=== PATIENT | male | born 1955 | race Caucasian/White ===

== ENCOUNTER 2016-05-30 06:33 | Emergency (ER) | payer BC, OTHER ==
[2016-05-30 06:41] VITALS: BP 124/62; BMI 39.9
--- NOTE | 2016-05-30 06:47 | DR.GENAD ---
HPI - PCP Primary Care Physician: SPENCER - Complaint/Symptoms Chief Complaint:: FEVER COUGH BODYACHE Self Treatment fo Chief Complaint: TYLENOL TAKEN LAST AT 0230, ALKASELTZER COLD AND FLU - Nurses notes reviewed Nurses Notes Review: Yes - Source History Provided: Patient - Mode of Arrival Mode of Arrival: Ambulatory - Timing Onset of Chief Complaint: 05/28/16 Came on: Gradually - Duration Duration: Intermittent How lon Duration: Days - Location Location: generalized - Severity Severity: Moderate - Modifying Factors Worsens:: cough - Associated Signs and Symptoms Associated Signs and Symptoms: fever PMH - PMH Past Medical History: Yes Past Medical History: Diabetes Past Surgical History: Yes Surgical History: Abdominal Surgery, Ortho Surgery Past Surgical History Comment: HERNIA REPAIR, FISUREECTOMY, CARPALTUNNEL SURGERY , BACK SURGERY - Family History History of Family Medical Conditions: Yes Family Medical History: Cancer, Hypertension - Social History Does patient currently use any type of tobacco product: No Have you used tobacco products in the last 12 months: No Type of Tobacco Use: None Does any household member use tobacco: No Alcohol Use: None Do you use any recreational Drugs:: No Lives With: Family Lives Where: Home - infectious screening In the last 2 months have you had wt loss of >10#?: NO Have you had fever, night sweats or hemotysis?: No Have you traveled outside the country in the last 6 months?: No Isolation: Standard ROS - Review of Systems Constitutional: Fever Eyes: No Symptoms Reported ENTM: Nose Discharge, Throat Pain Respiratoy: Productive Cough Cardiovascular: No Symptoms Reported Gastrointestinal/Abdominal: No Symptoms Reported Genitourinary: No Symptoms Reported Neurological: No Symptoms Reported Musculoskeletal: No Symptoms Reported Integumentary: No Symptoms Reported Hematologic/Lymphatic: No Symptoms Reported Endocrine: No Symptoms Reported Psychiatric: No Symptoms Reported PE - Vital Signs Vitals: Temperature 100 F Pulse Rate 76 Respiratory Rate 16 Blood Pressure [Left Arm] 107/56 Blood Pressure 124/62 O2 Sat by Pulse Oximetry 98 - General Limitations: No Limitations General Appearance: Alert, In No Apparent Distress - Head Head Exam: Normal Inspection - Eyes Eye exam: Normal Appearance, EOMI. negative: Scleral Icterus, Conjunctival Injection - ENT ENT Exam: Normal Exam, Normal Oropharynx External Ear Exam: Normal External Inspection Nose Exam: Normal Nose Exam Mouth Exam: Normal Inspection Throat Exam: Tonsillar Erythema - Neck Neck Exam: Normal Inspection, Full ROM, Trachea Midline - Chest Chest Inspection: Normal Inspection - Respiratory Respiratory Exam: Normal Lung Sounds Bilat. negative: Accessory Muscle Use, Respiratory Distress Respiratory Exam: Bilateral Clear to Auscultation - Cardiovascular Cardiovascular Exam: Regular Rate, Normal Rhythm - Abdominal Exam Abdominal Exam: Normal Inspection, Normal Bowel Sounds, Soft. negative: Distention, Tenderness - Extremities Extremities Exam: Normal Inspection, Full ROM - Back Back Exam: Normal Inspection - Neurologic Neurological Exam: Alert, Oriented X3, CN II-XII Intact - Psychiatric Psychiatric Exam: Normal Mood - Skin Skin Exam: Intact, Normal Color ROR - Labs Reviewed Laboratory: Streptococcus Screen Positive (NEGATIVE) A 05/30/16 06:59 - Diagnosis Discharge Problem: Strep pharyngitis - Discharge Plan Condition: Stable Prescriptions: Azithromycin [Zithromax Z-David 5-day] 1 dose PO DAILY #6 tab Ibuprofen [Motrin Tab 800 mg] 800 mg PO Q8H PRN #30 tab PRN Reason: Pain/Inflammation Ondansetron [Zofran Odt] 4 mg PO Q8H PRN #12 tab PRN Reason: Nausea/Vomiting - Follow ups/Referrals Follow ups/Referrals: Fox Strickland [Primary Care Provider] - 3 days - Instructions
[2016-05-30] MEDS ORDERED: ROCEPHIN VIAL 1 GM IM ONE (07:34)
[2016-05-30] MEDS ORDERED: ROCEPHIN VIAL 1 GM ONE (07:42)
== END 2016-05-30 07:58 | disposition home or self-care (01) ==
LOC: ER 06:37
DX: J02.0 Streptococcal pharyngitis (principal)
CPT/HCPCS: 87502; 87503; 87880; 90471; 96372; 99282; J0696

== ENCOUNTER → 2016-08-27 | Outpatient (CLI) | payer BC ==
[2016-08-27 07:26] LABS: HEMOGLOBIN A1C 8.5 % (4.5-6.2)
[2016-08-27 07:32] LABS: BASOPHILS # (AUTO) 0.1 X10^3/uL (0.0-0.1); BASOPHILS % (AUTO) 0.7 % (0.2-1.0); EOSINOPHILS # (AUTO) 0.3 x10^3/uL (0.0-0.2); EOSINOPHILS % (AUTO) 3.7 % (0.9-2.9); HEMATOCRIT 39.5 % (42.0-54.0); HEMOGLOBIN 13.8 g/dL (13.5-18.0); LYMPHOCYTES % (AUTO) 28.5 % (21.0-51.0); MEAN CORPUSCULAR HEMOGLOBIN 32.5 pg (27.0-34.0); MEAN CORPUSCULAR VOLUME 92.8 fL (80.0-100.0); MEAN PLATELET VOLUME 9.9 fL (7.4-11.0); MONOCYTES # (AUTO) 0.6 x10^3/uL (0.3-0.8); MONOCYTES % (AUTO) 8.5 % (0.0-13.0); NEUTROPHILS % (AUTO) 58.6 % (42.0-75.0); PLATELET COUNT 172 X10^3/uL (150.0-450.0); RED BLOOD COUNT 4.26 X10^6/uL (4.7-6.0); RED CELL DISTRIBUTION WIDTH 13.3 % (11.6-16.5); WHITE BLOOD COUNT 6.9 X10^3/uL (3.6-10.0)
[2016-08-27 07:49] LABS: ALANINE AMINOTRANSFERASE 63 Units/L (12-78); ALBUMIN 4.1 g/dL (3.4-5.0); ALKALINE PHOSPHATASE 41 Units/L (46-116); ASPARTATE AMINO TRANSFERASE 27 Units/L (15-37); BLOOD UREA NITROGEN 18 mg/dL (7-18); CALCIUM 8.6 mg/dL (8.5-10.1); CHLORIDE 103 mmol/L (98-107); CHOL/HDL RATIO 4.7 (0.0-5.0); CHOLESTEROL 166 mg/dL (0-200); COR NA(FOR HYPERGLY) 141 mmol/L (136-145); CREATININE 1.09 mg/dL (0.70-1.30); FREE T4 (FREE THYROXINE) 0.81 ng/dL (0.76-1.46); GLUCOSE 166 mg/dL (65-99); HDL CHOLESTEROL 35 mg/dL (40-60); SODIUM 139 mmol/L (136-145); TOTAL PROTEIN 7.3 g/dL (6.4-8.2); TRIGLYCERIDES 122 mg/dL (0-150); TSH (3RD GENERATION) 2.208 uIU/mL (0.358-3.74); URIC ACID 4.4 mg/dL (3.5-7.2); eGFR BLACK RACES > 60 (>60); eGFR NON BLACK RACES > 60 (>60)
[2016-08-27 08:58] LABS: CREATININE,URINE 81.58 mg/dL (40-278); MICROALBUMIN,URINE 5.1 mg/L
== END ==
LOC: LAB 07:00
PROVIDERS: ATTEND Internal Medicine
DX: E11.9 Type 2 diabetes mellitus without complications (principal); I10 Essential (primary) hypertension; M10.9 Gout, unspecified
CPT/HCPCS: 36415; 80053; 80061; 82043; 83036; 84439; 84443; 84550; 85025